=== PATIENT | female | born 1955 | race Caucasian/White ===

== ENCOUNTER 2023-01-05 06:18 | Day surgery (SDC) | payer OTHER ==
[~2023-01-05 06:18] MED LIST: CLONAZEPAM0.5 MG; COZAAR50 MG PO; HORIZANT300 MG PO; LIPIT PO; MOTRIN800 MG PO; PREMARIN0.45 MG; PREVACID30 MG PO; SINGULAIR10 MG PO; ZOLOFT50 MG
== END 2023-01-05 16:55 | disposition home or self-care (01) ==
LOC: CIR.AMB 06:18
PROVIDERS: ATTEND Obstetrics & Gynecology
DX: N88.2 Stricture and stenosis of cervix uteri (principal); N84.1 Polyp of cervix uteri; N84.0 Polyp of corpus uteri; Z20.822 Contact with and (suspected) exposure to COVID-19